=== PATIENT | female | born 1990 | race Caucasian/White ===

== ENCOUNTER 2020-10-23 18:34 | Emergency (ER) | payer OTHER ==
[~2020-10-23] VITALS: Ht 165.1 cm; Wt 123.5 kg
[2020-10-23 19:24] LABS: CLARITY,URINE CLEAR; COLOR,URINE YELLOW; GLUCOSE, URINE (UA) NEGATIVE (NEGATIVE); KETONES,URINE NEGATIVE (NEGATIVE); LEUKOCYTE ESTERASE ,URINE NEGATIVE (NEGATIVE); NITRITE,URINE NEGATIVE (NEGATIVE); PROTEIN,URINE 1+ (NEGATIVE)
[2020-10-23 19:25] LABS: BACTERIA,URINE NEGATIVE /HPF; BILIRUBIN,URINE 1+ (NEGATIVE); RBC,URINE 0-2 /HPF; SQUAMOUS EPITHELIAL CELL,UR 0-2 /HPF; WBC,URINE 0-2 /HPF
--- NOTE | 2020-10-23 19:47 | ED General ---
General Chief Complaint: Female Reproductive Stated Complaint: ABD/BACK/CORNEL LEG PAIN Nursing Triage Note: PT IN PER POV WITH C/O ABDOMINAL CRAMPING AND PAIN IN BILATERAL LEGS. REPORTS ONSET OF MENSES. TYLENOL AT 0830 AND 1500. Source of Information: Patient History of Present Illness Date Seen by Provider: Oct 23, 2020 Time Seen by Provider: 19:10 Initial Comments 30-year-old female presenting with complaints of low pelvic and abdominal cramping as well as pain going into her low back and legs. She started her menstrual cycle and states she does not usually have pain this severe. She has no fever or chills. She denies having nausea, vomiting, diarrhea, constipation, blood in her urine. She has had decreased urination. She tried taking Tylenol earlier today without significant improvement in her symptoms. She did not have any anti-inflammatories to take. She denies having pain or symptoms like this before. She does have an appointment next week with nurse franco Marie to establish care with the [facility] Allergies and Home Medications Allergies Coded Allergies: No Known Drug Allergies (Unverified , 10/23/20) Patient Home Medication List Home Medication List Reviewed: Yes Review of Systems Review of Systems Constitutional: No chills, No fever; malaise EENTM: no symptoms reported Respiratory: no symptoms reported Cardiovascular: no symptoms reported Gastrointestinal: see HPI Genitourinary: see HPI Musculoskeletal: back pain Skin: No rash Psychiatric/Neurological: Denies Numbness, Denies Tingling Past Cypzwdp-Enjptw-Qbokpn Hx Patient Social History Tobacco Use?: No Substance use?: No Alcohol Use?: Yes Alcohol Frequency: Once in a while Pt feels they are or have been: No Immunizations Up To Date Influenza Vaccine Up-to-Date: No; Not Current Past Medical History Last Menstrual Period: Oct 23, 2020 Physical Exam Vital Signs Vital Signs - First Documented 10/23/20 19:05 Temp 36.3 Pulse 97 Resp 16 B/P (MAP) 137/91 (106) Pulse Ox 100 O2 Delivery Room Air Capillary Refill : Less Than 3 Seconds Height, Weight, BMI Height: '" Weight: lbs. oz. kg; 45.00 BMI Method: General Appearance: Anxious HEENT: PERRL/EOMI, Pharynx Normal Neck: Full Range of Motion, Normal Inspection, Non Tender, Supple Respiratory: Chest Non Tender, Lungs Clear, Normal Breath Sounds, No Accessory Muscle Use, No Respiratory Distress Cardiovascular: Regular Rate, Rhythm, Normal Peripheral Pulses Gastrointestinal: Normal Bowel Sounds, No Pulsatile Mass, Non Tender, Soft Rectal: Deferred Back: No No Vertebral Tenderness; CVA Tenderness (L), CVA Tenderness (R) Extremity: Normal Capillary Refill, Normal Inspection, No Pedal Edema Neurologic/Psychiatric: Alert, Oriented x3, No Motor/Sensory Deficits, Normal Mood/Affect, senior software project manager II-XII Norm as Tested Skin: Normal Color, Warm/Dry Progress/Results/Core Measures Suspected Sepsis SIRS Temperature: Pulse: 97 Respiratory Rate: 16 Laboratory Tests 10/23/20 20:15: White Blood Count 8.6 Blood Pressure 137 /91 Mean: 106 Laboratory Tests 10/23/20 20:15: Creatinine 0.99, Platelet Count 254, Total Bilirubin 0.4 Results/Orders Lab Results Laboratory Tests Test 10/23/20 18:46 10/23/20 19:11 10/23/20 20:15 Range/Units Urine Test NEGATIVE NEGATIVE Urine Color YELLOW Urine Clarity CLEAR Urine pH 5.0 5-[address] [place] >=1.030 1.016-1.022 Urine Protein 1+ H NEGATIVE Urine Glucose (UA) NEGATIVE NEGATIVE Urine Ketones NEGATIVE NEGATIVE Urine Nitrite NEGATIVE NEGATIVE Urine Bilirubin 1+ H NEGATIVE Urine Urobilinogen 0.2 < = 1.0 MG/DL Urine Leukocyte Esterase NEGATIVE NEGATIVE Urine RBC (Auto) NEGATIVE NEGATIVE Urine RBC 0-2 /HPF Urine WBC 0-2 /HPF Urine Squamous Epithelial Cells 0-2 /HPF Urine Crystals NONE /LPF Urine Bacteria NEGATIVE /HPF Urine Casts NONE /LPF Urine Mucus SMALL H /LPF Urine Culture Indicated NO White Blood Count 8.6 4.3-11.0 10^3/uL Red Blood Count 4.24 L 4.35-5.85 10^6/uL Hemoglobin 12.3 11.5-16.0 G/DL Hematocrit 36 35-52 % Mean Corpuscular Volume 86 80-99 FL Mean Corpuscular Hemoglobin 29 25-34 PG Mean Corpuscular Hemoglobin Concent 34 32-36 G/DL Red Cell Distribution Width 13.7 10.0-14.5 % Platelet Count 254 130-400 10^3/uL Mean Platelet Volume 9.1 7.4-10.4 FL Immature Granulocyte % (Auto) 0 % Neutrophils (%) (Auto) 62 42-75 % Lymphocytes (%) (Auto) 31 12-44 % Monocytes (%) (Auto) 6 0-12 % Eosinophils (%) (Auto) 1 0-10 % Basophils (%) (Auto) 0 0-10 % Neutrophils # (Auto) 5.3 1.8-7.8 X 10^3 Lymphocytes # (Auto) 2.6 1.0-4.0 X 10^3 Monocytes # (Auto) 0.5 0.0-1.0 X 10^3 Eosinophils # (Auto) 0.1 0.0-0.3 10^3/uL Basophils # (Auto) 0.0 0.0-0.1 10^3/uL Immature Granulocyte # (Auto) 0.0 0.0-0.1 10^3/uL Percent Immature Platelet Fraction 1.6 0.0-7.6 % Sodium Level 138 135-145 MMOL/L Potassium Level 3.9 3.6-5.0 MMOL/L Chloride Level 103 98-107 MMOL/L Carbon Dioxide Level 24 21-32 MMOL/L Anion Gap 11 5-14 MMOL/L Blood Urea Nitrogen 14 7-18 MG/DL Creatinine 0.99 0.60-1.30 MG/DL Estimat Glomerular Filtration Rate 67 BUN/Creatinine Ratio 14 Glucose Level 87 70-105 MG/DL Calcium Level 9.6 8.5-10.1 MG/DL Corrected Calcium 9.4 8.5-10.1 MG/DL Magnesium Level 2.0 1.6-2.4 MG/DL Total Bilirubin 0.4 0.1-1.0 MG/DL Aspartate Amino Transf (AST/SGOT) 37 H 5-34 U/L Alanine Aminotransferase (ALT/SGPT) 65 H 0-55 U/L Alkaline Phosphatase 50 40-136 U/L Total Protein 7.4 6.4-8.2 GM/DL Albumin 4.2 3.2-4.5 GM/DL My Orders Orders - SOCORRO CULLEN MD Ua Culture If Indicated (10/23/20 19:10) Urine Bedside (10/23/20 19:10) Hcg,Qualitative Urine (10/23/20 18:46) Comprehensive Metabolic Panel (10/23/20 20:05) Ed Iv/Invasive Line Start (10/23/20 20:05) Cbc With Automated Diff (10/23/20 20:05) Ct Abdomen/Pelvis Wo (10/23/20 20:05) Ns Iv 1000 Ml (Sodium Chloride 0.9%) (10/23/20 20:05) Ketorolac Injection (Toradol Injection) (10/23/20 20:05) Magnesium (10/23/20 20:05) Vital Signs/I&O 10/23/20 10/23/20 19:05 21:27 Temp 36.3 36.3 Pulse 97 95 Resp 16 14 B/P (MAP) 137/91 (106) 128/78 (106) Pulse Ox 100 100 O2 Delivery Room Air Capillary Refill : Less Than 3 Seconds Blood Pressure Mean: 106 Progress Note #1: Progress Note Urinalysis does not show signs of infection and . She does have elevated specific gravity to go along with dehydration. Counseled patient on obtaining blood work and CT scan to evaluate for ovarian cyst versus colitis versus kidney stone versus cystitis. Try IV fluids with Toradol for her symptoms. Progress Note #2: Progress Note CBC and chemistry appear stable without acute significant abnormality. CT scan of the abdomen pelvis shows a 1.4 cm cyst in the left adnexal area. No acute significant abnormality otherwise. Patient reports improvement in her symptoms after treatment in the ED. Counseled on follow-up and return precautions. Diagnostic Imaging Diagonstic Imaging: CT Plain Films/CT/US/NM/MRI: abdomen, pelvis Comments [facility], [place] NAME: YESICA KOO [facility] REC#: [id number] PT STATUS: REG ER : 1990 PHYSICIAN: SOCORRO CULLEN MD ADMIT DATE: 10/23/20/ER FS Draft Date of Exam:10/23/20 CT ABDOMEN/PELVIS WO INDICATION: Pelvic pain and bilateral flank pain. TECHNIQUE: Multiple contiguous axial images were obtained through the abdomen and pelvis without the use of intravenous contrast. Auto Exposure Controls were utilized during the CT exam to meet ALARA standards for radiation dose reduction. There is no prior CT for comparison. The visualized portions of the lung bases are clear. There were no pleural fluid collections. There is no free intraperitoneal air. The liver shows mild diffuse low-density change compatible with fatty infiltration. There is no focal liver lesion seen without contrast. The gallbladder, spleen, adrenals and pancreas appear normal. The kidneys bilaterally appear normal. There is no radiopaque stone or hydronephrosis. There is no retroperitoneal mass or adenopathy. There is no ascites or abnormal fluid collection. Visualized bowel loops including the appendix appear normal. There appears to be a small cyst in the left adnexa measuring about 1.5 cm. There are metallic clips from prior tubal ligation. IMPRESSION: No abdominal mass or abnormal fluid collection. Small 1.5 cm cyst in the left adnexal region. Visualized bowel loops appear unremarkable. There is no renal stone or hydronephrosis. Dictated on workstation # [id number] Dict: 10/23/202037 Trans: 10/23/202042 [facility] [id number] Interpreted by: BRIA MORROW MD Electronically signed by: Departure Impression Primary Impression: Dehydration Additional Impressions: Left ovarian cyst Dysmenorrhea Disposition: HOME, SELF-CARE Condition: Stable Departure-Patient Inst. Decision time for Depature: 20:58 Referrals: NO,LOCAL PHYSICIAN (PCP) Primary Care Physician [facility] Patient Instructions: Dehydration, Adult ED, Ovarian Cyst ED, Painful Periods Add. Discharge Instructions: Stay well hydrated and try to keep your urine as light colored as possible. May take Naproxen to help with pain and cramping. Over the counter a brand name of this is Aleve. You could take 2 of the over the counter pills every 12 hours to be equal to a prescription strength. Check with clinic for continued pain or worsening symptoms. You could establish care with [facility] clinic by calling [phone] All discharge instructions reviewed with patient and/or family. Voiced understanding. Work/School Note: Work Release Form Date Seen in the Emergency Department: Oct 23, 2020 Return to Work: Oct 29, 2020 Restrictions: No Restrictions SOCORRO CULLEN MD Oct 23, 2020 19:47
[2020-10-23] MEDS ORDERED: NS IV 1000 ML 1,000 ML IV STA (20:05)
[2020-10-23] MEDS ORDERED: KETOROLAC 30 MG/ML VIAL IVP STA (20:05)
[2020-10-23 20:29] LABS: BASOPHILS % (AUTO) 0 % (0-10); EOSINOPHILS # (AUTO) 0.1 10^3/uL (0.0-0.3); EOSINOPHILS % (AUTO) 1 % (0-10); HEMATOCRIT 36 % (35-52); HEMOGLOBIN 12.3 G/DL (11.5-16.0); LYMPHOCYTES # (AUTO) 2.6 X 10^3 (1.0-4.0); LYMPHOCYTES % (AUTO) 31 % (12-44); MEAN CORPUSCULAR HEMOGLOBIN 29 PG (25-34); MEAN CORPUSCULAR HGB CONC 34 G/DL (32-36); MEAN CORPUSCULAR VOLUME 86 FL (80-99); MEAN PLATELET VOLUME 9.1 FL (7.4-10.4); MONOCYTES # (AUTO) 0.5 X 10^3 (0.0-1.0); MONOCYTES % (AUTO) 6 % (0-12); NEUTROPHILS # (AUTO) 5.3 X 10^3 (1.8-7.8); NEUTROPHILS % (AUTO) 62 % (42-75); PLATELET COUNT 254 10^3/uL (130-400); WHITE BLOOD COUNT 8.6 10^3/uL (4.3-11.0)
--- NOTE | 2020-10-23 20:44 | Diagnostic Imaging Report ---
INDICATION: Pelvic pain and bilateral flank pain. TECHNIQUE: Multiple contiguous axial images were obtained through the abdomen and pelvis without the use of intravenous contrast. Auto Exposure Controls were utilized during the CT exam to meet ALARA standards for radiation dose reduction. There is no prior CT for comparison. The visualized portions of the lung bases are clear. There were no pleural fluid collections. There is no free intraperitoneal air. The liver shows mild diffuse low-density change compatible with fatty infiltration. There is no focal liver lesion seen without contrast. The gallbladder, spleen, adrenals and pancreas appear normal. The kidneys bilaterally appear normal. There is no radiopaque stone or hydronephrosis. There is no retroperitoneal mass or adenopathy. There is no ascites or abnormal fluid collection. Visualized bowel loops including the appendix appear normal. There appears to be a small cyst in the left adnexa measuring about 1.5 cm. There are metallic clips from prior tubal ligation. IMPRESSION: No abdominal mass or abnormal fluid collection. Small 1.5 cm cyst in the left adnexal region. Visualized bowel loops appear unremarkable. There is no renal stone or hydronephrosis. Dictated by: Dictated on workstation # [id number]
[2020-10-23 20:50] LABS: ALBUMIN 4.2 GM/DL (3.2-4.5); BILIRUBIN,TOTAL 0.4 MG/DL (0.1-1.0); CALCIUM 9.6 MG/DL (8.5-10.1); CREATININE SERUM 0.99 MG/DL (0.60-1.30); POTASSIUM 3.9 MMOL/L (3.6-5.0); TOTAL PROTEIN 7.4 GM/DL (6.4-8.2)
[2020-10-23 21:27] VITALS: BP 128/78
== END 2020-10-23 21:27 | disposition home or self-care (01) ==
LOC: ER FS 18:37
DX: E86.0 Dehydration (principal); N83.202 Unspecified ovarian cyst, left side; N94.6 Dysmenorrhea, unspecified
CPT/HCPCS: 36415; 74176; 80053; 81000; 83735; 84703; 85025

== ENCOUNTER 2021-05-13 17:53 | Emergency (ER) | payer OTHER ==
--- NOTE | 2021-05-13 19:11 | ED Lower Extremity ---
General Chief Complaint: Lower Extremity Stated Complaint: RED PAINFUL LUMP R LEG Nursing Triage Note: RIGHT CALF PAIN AND REDNESS. Source: patient History of Present Illness Date Seen by Provider: May 13, 2021 Time Seen by Provider: 19:10 Initial Comments 31-year-old female presenting with complaint of redness, swelling, tenderness to the right medial calf. She states this started in the last day or 2. She is unsure if she bumped it against something when she was sleeping. She has a family history of blood clots. When she called the clinic about this they made an appointment in the morning for her but told her to go to the emergency department tonight. She denies having any shortness of breath or abdominal or chest pain. She does have multiple varicose veins in her legs. She has the family history of blood clots but she personally has never had a blood clot. She was recently started on control pills. She has increased pain to the right calf and leg with standing and walking. Severity: moderate Pain/Injury Location: right leg Method of Injury: unknown Modifying Factors: Worse With Movement Allergies and Home Medications Allergies Coded Allergies: No Known Drug Allergies (Unverified , 10/23/20) Patient Home Medication List Home Medication List Reviewed: Yes Review of Systems Constitutional: no symptoms reported EENTM: no symptoms reported Respiratory: no symptoms reported Cardiovascular: no symptoms reported Gastrointestinal: no symptoms reported Genitourinary: no symptoms reported Musculoskeletal: see HPI Skin: see HPI, change in color (Redness and swelling to the medial right calf) Psychiatric/Neurological: Denies Numbness, Denies Paresthesia Past Iyipfpr-Bngjna-Rcptnp Hx Patient Social History Tobacco Use?: No Use of E-Cig and/or Vaping dev: No Substance use?: No Alcohol Use?: Yes Alcohol type: Beer Alcohol Frequency: Once in a while Pt feels they are or have been: No Immunizations Up To Date First/Initial COVID19 Vaccinat: 2020 Second COVID19 Vaccination Mahamed: 2020 COVID19 Vaccine Turning Lathe Tender: JEANMARIE Physical Exam Vital Signs Vital Signs - First Documented 05/13/21 18:05 Temp 37.2 Pulse 72 Resp 18 B/P (MAP) 167/97 (120) Pulse Ox 97 O2 Delivery Room Air Capillary Refill : Less Than 3 Seconds Height, Weight, BMI Height: '" Weight: lbs. oz. 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 While I could order a D-dimer with her having a family history as well as redness and swelling to the right calf and leg she would need an ultrasound to fully rule out a blood clot. She could just have more of a superficial thrombophlebitis such as an one of her varicose veins. Will place an order for an outpatient ultrasound of her lower extremity as well as give her a shot of 1 mg/kg Lovenox tonight. Counseled to call the clinic first thing in the morning to see if they could possibly do the ultrasound prior to her appointment at 1020 with the clinic. D/w clinic if they want her to continue with control meds or hold them if she has a clot on testing and family hx of DVTs Departure Impression Primary Impression: Pain of right calf Additional Impressions: Pain and swelling of right lower extremity Localized swelling, mass and lump, right lower limb Family history of DVT Disposition: 01 HOME, SELF-CARE Condition: Stable Departure-Patient Inst. Decision time for Depature: 19:28 Referrals: DOROTEO BAUM APRN (PCP/Family) Primary Care Physician Patient Instructions: Deep Vein Thrombosis (DVT) ED, Dependent Edema (DC), Superficial Phlebitis Add. Discharge Instructions: The Lovenox shot from tonight will help thin your blood for over 12 hours to hel p protect you from a deep vein blood clot until you have time to get ultrasound in the morning with [facility] clinic. Call [facility] after 8 am to let them know you have an order for ultrasound and see if Celia, the instrument room technician, has any time available to do a Stat order and find out when you could come in to be seen for that test. The number you need to call is [phone] in the morning. Bring your copy of the order sheet with you to the test. keep your appointment with the clinic tomorrow morning to determine what needs to happen for further treatment. All discharge instructions reviewed with patient and/or family. Voiced under standing. SOCORRO CULLEN MD May 13, 2021 19:10
[2021-05-13] MEDS ORDERED: ENOXAPARIN 60 MG/0.6 ML (LOVENOX) SYR SC STA (19:20)
[2021-05-13 19:29] VITALS: BP 167/97
== END 2021-05-13 19:38 | disposition home or self-care (01) ==
LOC: EDUNIT# 17:53 → ER FS 17:54
DX: M79.661 Pain in right lower leg (principal); R22.41 Localized swelling, mass and lump, right lower limb
CPT/HCPCS: 96372; 99282